=== PATIENT | male | born 1955 | race Caucasian/White ===

== ENCOUNTER 2021-05-31 17:39 | Emergency (ER) | payer MEDICARE ==
[~2021-05-31 17:39] MED LIST: DEXL60CA2 PO; HYDR25TA6 PO; IBUP-1223 PO; MONT10TA6 PO; MULT-298 PO; PREG75CA PO; TEST2.5G3 EXT
--- NOTE | 2021-05-31 18:59 | NUR ---
NIL X1
--- NOTE | 2021-05-31 19:10 | NUR ---
NOT IN LOBBY
--- NOTE | 2021-05-31 22:03 | NUR ---
PT NIL X 3
== END 2021-05-31 22:13 | disposition left against medical advice (07) ==
LOC: ED 18:00
DX: R68.89 Other general symptoms and signs (principal); Z53.21 Procedure and treatment not carried out due to patient leaving prior to being seen by health care provider
CPT/HCPCS: 99283